=== PATIENT | female | born 1980 | race Caucasian/White ===

== ENCOUNTER 2018-03-03 03:44 | Emergency (ER) | payer MEDICAID, SELFPAY ==
[2018-03-03 03:45] VITALS: BP 190/80; PULSE 101; RESP 16; TEMP 36.7; O2SAT 97; BMI 33.0
--- NOTE | 2018-03-03 04:05 | ED.DCSUM_ITS ---
- ER Visit Summary Date of Service: 03/03/18 Chief Complaint: Ear pain History of Present Illness: The patient is a 37 F who woke up with right ear pain 3 hours ago. No other complaints. Physical Examination: Right tympanic membrane is bulging and erythematous. Landmarks unable to be visualized. External canal looks normal. No mastoid tenderness. No fever here. Test Results: None performed Emergency Department Course and Treatment: She appears to have an otitis media on the right. I will treated with amoxicillin. First dose given here. Of note, her blood pressure was elevated on arrival. She is on blood pressure medication. She has no headache, visual changes, chest pain, or other symptoms related to it. She states that it is typically elevated when she arrives at a medical appointment. I advised that she recheck it tomorrow morning, come back if she develops any symptoms, and otherwise follow-up with her doctor for medication adjustments if not improving Treatment Plan: Oral amoxicillin Disposition: Home stable Impression: Initial encounter right otitis media This note was generated with [employer] dictation software. It may contain incorrect words, spelling, and punctuation that were not noted in review of the chart prior to signing ED Disposition - Plan for ED Patient: Chief Complaint: Ear Problem Instructions: ED Otitis Media Acute Adult Prescriptions: Amoxicillin 500 mg PO TID #21 tablet Referrals: Dave Rao DO [Primary Care Provider] -
[2018-03-03] MEDS: AMOXICILLIN 500 MG CAPSULE PO (04:09)
[2018-03-03 04:10] VITALS: BP 172/100; PULSE 91; RESP 16; O2SAT 97
--- OUTSIDE RECORDS SUMMARY | 2018-05-07 13:16 | XMS RPT_ITS ---
:1980 External Reference #:[id number] Author Organization [facility] Care Team Providers Name Role Phone Drake Brtit Attending Unavailable Dave Rao Primary Care Unavailable PROBLEMS PROBLEMS No Problem Records FoundPROCEDURES PROCEDURES No Procedure Records FoundRESULTS RESULTS EMERGENCY DEPARTMENT Observed: 03/03/2018 Status: F Source: [place] SUMMARY 4:05 AM [facility] [place] [facility] Medical Records Department [address] [place] [address] Emergency Department Summary 03/03/18 0402 MR#: [id number] Acct: [id number] Name: LUCI PETERSEN Rep #: [id number] : 1980 37 From: Harjinder Britt MD PCP: Dave Rao DO Status: REG ER - ER Visit Summary Date of Service: 03/03/18 Chief Complaint: Ear pain History of Present Illness: The patient is a 37 F who woke up with right ear pain 3 hours ago. No other complaints. Physical Examination: Right tympanic membrane is bulging and erythematous. Landmarks unable to be visualized. External canal looks normal. No mastoid tenderness. No fever here. Test Results: None performed Emergency Department Course and Treatment: She appears to have an otitis media on the right. I will treated with amoxicillin. First dose given here. Of note, her blood pressure was elevated on arrival. She is on blood pressure medication. She has no headache, visual changes, chest pain, or other symptoms related to it. She states that it is typically elevated when she arrives at a medical appointment. I advised that she recheck it tomorrow morning, come back if she develops any symptoms, and otherwise follow- up with her doctor for medication adjustments if not improving Treatment Plan: Oral amoxicillin Disposition: Home stable Impression: Initial encounter right otitis media This note was generated with [employer] dictation software. It may contain incorrect words, spelling, and punctuation that were not noted in review of the chart prior to signing ED Disposition - Plan for ED Patient: Chief Complaint: Ear Problem Instructions: ED Otitis Media Acute Adult Prescriptions: Amoxicillin 500 mg PO TID #21 tablet Referrals: Dave Rao DO [Primary Care Provider] - What to do if you have Problems For any increased pain, shortness of breath, bleeding, nausea or vomiting, chest pain, or any unexpected problems, contact your Primary Care Provider. Call [facility] ([phone]) or report to the closest Emergency Room. Call 911 if necessary. 03/03/185 <Electronically signed by Harjinder Britt MD> Date Harjinder Britt MD Cosigner Signature (If Indicated): Date CC: Dave Rao DO ALLERGIES ALLERGIES DATE TYPE / CODE NAME / CODE REACTION SEVERITY SOURCE 11/08/2013 Drug No Known Unknown Chris [facility] Allergy/4160 Allergies/F00 [facility] [address](SNOMED [id number](RXNOR Repository CT) M) ENCOUNTERS ENCOUNTERS ADMIT/DISCHARGE ACCOUNT ADMITTING ENCOUNTER LOCATION SOURCE NUMBER CLASS 03/03/2018/ [id number] Emergency Chrisdiomedes Perez 9 [facility] ing:ED Repository PAYERS PAYERS ENCOUNTER GUARANTOR PAYER SUBSCRIBER SOURCE 03/03/2018 LUCI Chun Primary Insurance:[facility] LUCI Perez [id number] [facility] TINGB: [facility] Number: [id number] [id number] Repository [address]Lhn: ([phone]) Date:[phone] () [address], [place] [address]MK: 03/03/2018 Secondary NOT GIVENUNK Chris Insurance:SELF PAY [facility] Number: Effective Repository Date:2018-03-03
== END 2018-03-03 04:11 | disposition home or self-care (01) ==
PROVIDERS: Emergency Provider Emergency Medicine; Family Provider Family Medicine; PCP Family Medicine
DX: H66.91 Otitis media, unspecified, right ear (principal); I10 Essential (primary) hypertension; Z72.0 Tobacco use; Z79.899 Other long term (current) drug therapy
CPT/HCPCS: 99283

== ENCOUNTER → 2019-12-01 08:11 | Outpatient (CLI) | payer MEDICAID, SELFPAY ==
[2019-12-01 09:19] LABS: AST(SGOT) 16 U/L (15-37); Alanine Aminotransfer ALT/SGPT 30 U/L (13-56); Albumin, Serum 3.6 g/dL (3.2-5.0); Alkaline Phosphatase 57 U/L (45-117); Anion Gap 3 (5-15); BUN 9 mg/dL (7-18); BUN/Creat Ratio 12.7 RATIO (10-20); Calcium,Total 8.6 mg/dL (8.5-10.1); Chloride 107 mmol/L (98-107); Cholesterol 198 mg/dL (200); Creatinine, Serum 0.71 mg/dL (0.55-1.02); EST Glomerular Filtration Rate 98 mL/min (>60); Est Glom Filt Rate - Afr Amer 119 mL/min (>60); Globulin 3.5 g/dL (2.2-4.2); Glucose 99 mg/dL (74-106); High Density Lipoprotein 37 mg/dL; Potassium 3.7 mmol/L (3.5-5.1); Protein, Total 7.1 g/dL (6.4-8.2); Sodium Level 139 mmol/L (136-145); Triglycerides 188 mg/dL; Very Low Density Lipoprotein 38 mg/dL (5-40)
== END ==
PROVIDERS: PCP Student in an Organized Health Care Education/Training Program; Referring Provider Student in an Organized Health Care Education/Training Program; Visit Provider Student in an Organized Health Care Education/Training Program
DX: Z13.220 Encounter for screening for lipoid disorders (principal); I10 Essential (primary) hypertension; Z72.0 Tobacco use; Z68.28 Body mass index [BMI] 28.0-28.9, adult
CPT/HCPCS: 36415; 80053; 80061

== ENCOUNTER → 2020-04-17 12:31 | Outpatient (CLI) | payer MEDICAID, SELFPAY ==
--- NOTE | 2020-04-17 12:54 | EKG12_ITS ---
Test Reason : Blood Pressure : / mmHG Vent. Rate : 101 BPM Atrial Rate : 101 BPM P-R Int : 130 ms QRS Dur : 086 ms QT Int : 342 ms P-R-T Axes : 063 056 039 degrees QTc Int : 443 ms Sinus tachycardia Otherwise normal ECG Confirmed by SIDRA FAJARDO, RONNI ([id number]), health editor LASHON EDMONDSON ([id number]) on 04/18/2020 7:49:06 AM Referred By: CHAVEZ Confirmed By:RONNI VALENTE MD
--- NOTE | 2020-04-17 13:00 | RAD_ITS ---
STUDY: X-RAY CHEST REASON FOR EXAM: Female, 39 years old. SOB ON EXERTION, VIRAL UPPER RESPIRATORY INFECTION, TOBACCO USE TECHNIQUE: PA and lateral views of the chest. COMPARISON: None. FINDINGS: The lungs are clear and expanded. There is no demonstrated pleural abnormality. Normal size heart. Normal mediastinum and cristina. Normal visualized pulmonary arteries. Normal visualized aortic arch and descending thoracic aorta. Normal visualized thoracic spine. Normal visualized ribs, clavicles, and shoulders. There is no demonstrated abnormality of the visualized soft tissue structures of the upper abdomen. RAD/Chest PA and Lateral IMPRESSION: Normal x-ray examination of the chest. Electronically Signed: Dl Haque MD at 15:36 EST , Service support ,
[2020-04-17 13:29] LABS: Hematocrit 45.1 % (37-47); Hemoglobin 14.8 g/dL (12.0-15.0); Mean Corp Hgb Conc 32.8 g/dL (32-36); Mean Corpuscular Hgb 31.2 pg (27.0-32.0); Mean Corpuscular Volume 95.1 fL (81-99); Mean Platelet Vol. 11.1 fl (6.2-12.0); Platelet Count 260 K/mm3 (150-450); RBC Distribution Width CV 12.1 % (11.6-14.6); RBC Distribution Width SD 42.5 fl (35.1-43.9); Red Blood Count 4.74 M/mm3 (4.2-5.4); White Blood Count 7.3 K/mm3 (4.4-11.0)
[2020-04-17 13:35] LABS: D-Dimer Quantitative (DVT/PE) 0.29 FEU/ug/m (0.27-0.49)
[2020-04-17 13:52] LABS: Anion Gap 6 (5-15); BUN 7 mg/dL (7-18); BUN/Creat Ratio 8.9 RATIO (10-20); Calcium,Total 9.7 mg/dL (8.5-10.1); Chloride 102 mmol/L (98-107); Creatinine, Serum 0.79 mg/dL (0.55-1.02); EST Glomerular Filtration Rate 86 mL/min (>60); Est Glom Filt Rate - Afr Amer 105 mL/min (>60); Glucose 120 mg/dL (74-106); Potassium 3.1 mmol/L (3.5-5.1); Sodium Level 139 mmol/L (136-145)
[2020-04-17 20:44] LABS: BNP,B-Type NATRIURETIC PEPTIDE < 2.0 pg/mL (0-100)
== END ==
LOC: LAB.FUTURE 12:33 → LAB 12:35
PROVIDERS: PCP Student in an Organized Health Care Education/Training Program; Visit Provider Student in an Organized Health Care Education/Training Program
DX: R06.02 Shortness of breath (principal); J06.9 Acute upper respiratory infection, unspecified; Z72.0 Tobacco use
CPT/HCPCS: 36415; 71046; 80048; 83880; 85027; 85379; 87880; 93005

== ENCOUNTER → 2020-08-12 06:40 | Outpatient (CLI) | payer MEDICAID, SELFPAY ==
[2020-08-12 08:20] LABS: Potassium 3.4 mmol/L (3.5-5.1)
[2020-08-12 10:42] LABS: Anion Gap 6 (5-15); BUN 12 mg/dL (7-18); BUN/Creat Ratio 16.6 RATIO (10-20); Calcium,Total 8.6 mg/dL (8.5-10.1); Chloride 107 mmol/L (98-107); Cholesterol 221 mg/dL (200); Creatinine, Serum 0.72 mg/dL (0.55-1.02); EST Glomerular Filtration Rate 95 mL/min (>60); Est Glom Filt Rate - Afr Amer 115 mL/min (>60); Glucose 84 mg/dL (74-106); High Density Lipoprotein 31 mg/dL; Sodium Level 141 mmol/L (136-145); Triglycerides 201 mg/dL; Very Low Density Lipoprotein 40 mg/dL (5-40)
== END ==
PROVIDERS: PCP Student in an Organized Health Care Education/Training Program; Referring Provider Student in an Organized Health Care Education/Training Program; Visit Provider Student in an Organized Health Care Education/Training Program
DX: E87.6 Hypokalemia (principal); R73.9 Hyperglycemia, unspecified; R06.02 Shortness of breath; Z72.0 Tobacco use
CPT/HCPCS: 36415; 80048; 80061

== ENCOUNTER → 2021-11-28 | Outpatient (CLI) | payer MEDICAID, SELFPAY ==
[2021-11-28 09:11] LABS: Hematocrit 43.3 % (37-47); Mean Corp Hgb Conc 34.6 g/dL (32-36); Mean Corpuscular Hgb 32.5 pg (27.0-32.0); Mean Corpuscular Volume 93.9 fL (81-99); Mean Platelet Vol. 10.7 fl (6.2-12.0); Platelet Count 271 K/mm3 (150-450); RBC Distribution Width CV 11.9 % (11.6-14.6); RBC Distribution Width SD 41.1 fl (35.1-43.9); Red Blood Count 4.61 M/mm3 (4.2-5.4); White Blood Count 6.2 K/mm3 (4.4-11.0)
[2021-11-28 09:35] LABS: ALB/GLOB Ratio 1.1 RATIO (0.9-2.4); AST(SGOT) 19 U/L (15-37); Alanine Aminotransfer ALT/SGPT 23 U/L (13-56); Albumin, Serum 3.7 g/dL (3.2-5.0); Alkaline Phosphatase 60 U/L (45-117); Anion Gap 6 (5-15); BUN 10 mg/dL (7-18); BUN/Creat Ratio 15.1 RATIO (10-20); Calcium,Total 8.7 mg/dL (8.5-10.1); Chloride 109 mmol/L (98-107); Cholesterol 214 mg/dL (200); Creatinine, Serum 0.66 mg/dL (0.55-1.02); EST Glomerular Filtration Rate 105 mL/min (>60); Est Glom Filt Rate - Afr Amer 127 mL/min (>60); Globulin 3.4 g/dL (2.2-4.2); Glucose 103 mg/dL (74-106); High Density Lipoprotein 37 mg/dL; Potassium 3.5 mmol/L (3.5-5.1); Protein, Total 7.1 g/dL (6.4-8.2); Sodium Level 142 mmol/L (136-145); Triglycerides 134 mg/dL; Very Low Density Lipoprotein 27 mg/dL (5-40)
== END | disposition home or self-care (01) ==
LOC: LAB 08:21
PROVIDERS: PCP Student in an Organized Health Care Education/Training Program; Referring Provider Nurse Practitioner Family; Visit Provider Nurse Practitioner Family
DX: I10 Essential (primary) hypertension (principal); Z13.1 Encounter for screening for diabetes mellitus; Z13.220 Encounter for screening for lipoid disorders
CPT/HCPCS: 36415; 80053; 80061; 85027

== ENCOUNTER → 2021-12-11 | Outpatient (CLI) | payer MEDICAID, SELFPAY ==
--- NOTE | 2021-12-11 07:37 | BI_ITS ---
MAMMOGRAPHY - BILATERAL SCREENING REASON FOR EXAM: Female, 41 years old. Routine annual screening examination. PERTINENT HISTORY: Non-contributory. TECHNIQUE: Digital bilateral breast sergio (3D mammographic acquisition) in the CC and MLO projections. 2-D mediolateral oblique (MLO) and craniocaudad (CC) views of both breasts were obtained. CAD: Full Field Digital Mammography with Computer Added Detection was performed. COMPARISON: None. Baseline examination. FINDINGS: Breast Composition: There are scattered areas of fibroglandular density. There are no dominant masses or suspicious calcifications. No other significant abnormalities are identified. BI/SCRN MAMM (CAD)W/SERGIO BILAT IMPRESSION: Negative screening mammogram. Yearly followup mammogram recommended. (A) ASSESSMENT CATEGORY: BIRADS Category 1: Negative. A letter regarding these results will be sent to the patient by the facility within 30 days. Approximately 10% of breast cancers are not detected by mammography. A normal mammogram should not delay biopsy of a clinically suspicious abnormality. [id number] Electronically Signed: Dl Haque MD at 8:33 EDT ,
== END | disposition home or self-care (01) ==
LOC: OPBI 07:35
PROVIDERS: PCP Student in an Organized Health Care Education/Training Program; Referring Provider Nurse Practitioner Family; Visit Provider Nurse Practitioner Family
DX: Z12.31 Encounter for screening mammogram for malignant neoplasm of breast (principal)
CPT/HCPCS: 77063; 77067

== ENCOUNTER → 2022-06-12 | Outpatient (CLI) | payer MEDICAID, SELFPAY ==
[2022-06-12 09:59] LABS: ALB/GLOB Ratio 1.2 RATIO (0.9-2.4); AST(SGOT) 18 U/L (15-37); Alanine Aminotransfer ALT/SGPT 31 U/L (13-56); Albumin, Serum 3.7 g/dL (3.2-5.0); Alkaline Phosphatase 57 U/L (45-117); Anion Gap 3 (5-15); BUN 10 mg/dL (7-18); BUN/Creat Ratio 14.8 RATIO (10-20); Calcium,Total 8.8 mg/dL (8.5-10.1); Chloride 108 mmol/L (98-107); Cholesterol 143 mg/dL (200); Creatinine, Serum 0.68 mg/dL (0.55-1.02); EST Glomerular Filtration Rate 102 mL/min (>60); Est Glom Filt Rate - Afr Amer 123 mL/min (>60); Globulin 3.2 g/dL (2.2-4.2); Glucose 91 mg/dL (74-106); High Density Lipoprotein 37 mg/dL; Potassium 3.5 mmol/L (3.5-5.1); Protein, Total 6.9 g/dL (6.4-8.2); Sodium Level 139 mmol/L (136-145); Triglycerides 129 mg/dL; Very Low Density Lipoprotein 26 mg/dL (5-40)
[2022-06-12 11:11] LABS: Microalbumin,Random Urine 32.3 mg/L (NO RANGE EST.); Microalbumin:Creatinine Ratio 7.1 mg/g CRE (<30 mg/g CRE)
== END | disposition home or self-care (01) ==
LOC: LAB 09:07
PROVIDERS: PCP Nurse Practitioner Family; Referring Provider Nurse Practitioner Family; Visit Provider Nurse Practitioner Family
DX: E78.2 Mixed hyperlipidemia (principal); I10 Essential (primary) hypertension; R73.9 Hyperglycemia, unspecified; E87.6 Hypokalemia
CPT/HCPCS: 36415; 80053; 80061; 82043; 82570

== ENCOUNTER → 2023-01-21 | Outpatient (CLI) | payer BC, SELFPAY ==
--- NOTE | 2023-01-21 07:53 | BI_ITS ---
MAMMOGRAPHY - BILATERAL SCREENING REASON FOR EXAM: Female, 42 years old. Routine annual screening examination. PERTINENT HISTORY: Non-contributory. TECHNIQUE: Digital bilateral breast sergio (3D mammographic acquisition) in the CC and MLO projections. 2-D mediolateral oblique (MLO) and craniocaudad (CC) views of both breasts were obtained. CAD: Full Field Digital Mammography with Computer Added Detection was performed. COMPARISON: Comparison is made with prior study December 11, 2021. FINDINGS: Breast Composition: There are scattered areas of fibroglandular density. There are no dominant masses or suspicious calcifications. No other significant abnormalities are identified. There has been no significant change since the prior study. BI/SCRN MAMM (CAD)W/SERGIO BILAT IMPRESSION: Stable bilateral screening mammogram. Yearly follow-up mammogram recommended. (A) ASSESSMENT CATEGORY: BIRADS Category 1: Negative. A letter regarding these results will be sent to the patient by the facility within 30 days. Approximately 10% of breast cancers are not detected by mammography. A normal mammogram should not delay biopsy of a clinically suspicious abnormality. [id number] Electronically Signed: Dl Haque MD at 9:37 EST ,
== END | disposition home or self-care (01) ==
LOC: OPBI 07:50
PROVIDERS: PCP Nurse Practitioner Family; Referring Provider Nurse Practitioner Family; Visit Provider Nurse Practitioner Family
DX: Z12.31 Encounter for screening mammogram for malignant neoplasm of breast (principal)
CPT/HCPCS: 77063; 77067

== ENCOUNTER → 2024-12-29 | Outpatient (CLI) | payer OTHER, SELFPAY ==
[2024-12-29 07:20] LABS: Hematocrit 45.4 % (37-47); Hemoglobin 15.7 g/dL (12.0-15.0); Mean Corp Hgb Conc 34.6 g/dL (32-36); Mean Corpuscular Volume 94.8 fL (81-99); Mean Platelet Vol. 10.3 fl (6.2-12.0); Platelet Count 299 K/mm3 (150-450); RBC Distribution Width CV 11.9 % (11.6-14.6); RBC Distribution Width SD 41.7 fl (35.1-43.9); Red Blood Count 4.79 M/mm3 (4.2-5.4); White Blood Count 9.0 K/mm3 (4.4-11.0)
[2024-12-29 07:55] LABS: AST(SGOT) 23 U/L (<=31); Alanine Aminotransfer ALT/SGPT 30 U/L (<=34); Albumin, Serum 4.3 g/dL (3.5-5.0); Alkaline Phosphatase 60 U/L (35-104); Anion Gap 8 (5-15); BUN 11 mg/dL (4-19); BUN/Creat Ratio 14.7 RATIO (10-20); Calcium,Total 9.2 mg/dL (7.6-11.0); Carbon Dioxide 27.2 mmol/L (21.0-32.0); Chloride 104 mmol/L (98-108); Cholesterol 159 mg/dL (<=200); Globulin 2.6 g/dL (2.2-4.2); Glucose 116 mg/dL (70-99); Low Density Lipoprotein Calc. 94 mg/dL; Potassium 4.0 mmol/L (3.3-5.1); Triglycerides 197 mg/dL; Very Low Density Lipoprotein 39 mg/dL (5-40); cholesterol:hdl ratio screen 5.16
== END | disposition home or self-care (01) ==
LOC: LAB 07:08
PROVIDERS: PCP Nurse Practitioner Family; Referring Provider Nurse Practitioner Family; Visit Provider Nurse Practitioner Family
DX: Z00.00 Encounter for general adult medical examination without abnormal findings (principal); E04.9 Nontoxic goiter, unspecified
CPT/HCPCS: 36415; 80053; 80061; 83036; 84443; 85027